=== PATIENT | male | born 1995 | race Caucasian/White ===

== ENCOUNTER 2021-12-18 19:18 | Emergency (ER) | payer OTHER ==
[2021-12-18 19:29] VITALS: BP 153/82
[2021-12-18 19:44] LABS: RAPID STREP SCREEN Negative (Negative)
[2021-12-18] MEDS ORDERED: DEXAMETHASONE 10 MG/ML VIAL PO STA (20:14)
[2021-12-18] MEDS ORDERED: PENICILLIN VK 250 MG TABLET PO STA (20:14)
[2021-12-18] MEDS ORDERED: CHERRY SYRUP 10 ML UDC PO ONE (20:14)
--- NOTE | 2021-12-18 20:17 | ED Physician Documentation ---
History of Present Illness - Stated complaint Stated Complaint: SORE THROAT/WHITE SPOTS ON THROAT - Chief complaint Chief Complaint: Heent - History obtained from History obtained from: Patient - History of Present Illness Timing: Today Pain level max: 5 Pain level now: 4 - Additonal information Additional information: 26-year-old male presents to the emergency department for sore throat today. No rhinorrhea or congestion. No cough. Subjective fever. Chills. Worse with eating and drinking, nothing makes it better. No nausea, vomiting, rash, abdominal pain. Review of Systems Constitutional: denies: Fever Respiratory: denies: Cough GI: denies: Nausea, Vomiting Skin: denies: Rash Musculoskeletal: denies: Neck pain, Back pain Neurologic: denies: Headache PD PAST MEDICAL HISTORY - Past Medical History Past Medical History: No Cardiovascular: None Respiratory: None Neuro: None Endocrine/Autoimmune: None GI: None : None HEENT: None Psych: None Musculoskeletal: None Derm: None - Past Surgical History Past Surgical History: No - Present Medications Home Medications: Ambulatory Orders Medication Instructions Recorded Confirmed Ibuprofen [Motrin] 800 mg PO Q8H PRN #30 tablet 12/18/21 Penicillin V Potassium 500 mg PO Q6HR #40 tablet 12/18/21 - Allergies Allergies/Adverse Reactions: Allergies Allergy/AdvReac Type Severity Reaction Status Date / Time No Known Drug Allergies Allergy Verified 12/18/21 19:29 - Social History Does the pt smoke?: No Smoking Status: Never smoker Does the pt drink ETOH?: Yes Does the pt have substance abuse?: No - Immunizations Immunizations are current?: Yes - POLST Patient has POLST: No PD ED PE NORMAL - Vitals Vital signs reviewed: Yes - General General: Alert and oriented X 3, No acute distress - HEENT HEENT: Moist mucous membranes, Other (Posterior oropharynx is erythematous with tonsillar exudates. Normal phonation. No trismus. Uvula midline.) - Neck Neck: Supple, no meningeal sign - Cardiac Cardiac: RRR - Respiratory Respiratory: No respiratory distress, Clear bilaterally - Derm Derm: Warm and dry - Neuro Neuro: Alert and oriented X 3 - Psych Psych: Normal mood, Normal affect Results - Vitals Vitals: Vital Signs - 24 hr 12/18/21 12/18/21 12/18/21 19:28 19:31 20:19 Temperature 37.0 C Heart Rate 68 Respiratory 16 16 16 Rate Blood Pressure 153/82 H O2 Saturation 100 Oxygen O2 Source Room air - Labs Labs: Laboratory Tests 12/18/21 19:15 Group A Strep Rapid Negative PD MEDICAL DECISION MAKING - ED course Complexity details: reviewed results, considered differential, d/w patient ED course: 26-year-old male with what appears to be strep pharyngitis. 4 out of 4 positive Centor criteria. We will treat with antibiotics. Patient is well-appearing, nontoxic. Normal phonation. No trismus. No evidence of peritonsillar abscess. No evidence of retropharyngeal abscess. Patient counseled regarding signs and symptoms for which I believe and urgent re-evaluation would be necessary. Patient with good understanding of and agreement to plan and is comfortable going home at this time This document was made in part using voice recognition software. While efforts are made to proofread this document, sound alike and grammatical errors may occur. Departure - Departure Disposition: 01 Home, Self Care Clinical Impression: Pharyngitis Qualifiers: Pharyngitis/tonsillitis etiology: unspecified etiology Qualified Code(s): J02.9 - Acute pharyngitis, unspecified Condition: Good Instructions: ED Strep Pharyngitis Poss Follow-Up: your,doctor in 1 week [Other] Prescriptions: Penicillin V Potassium 500 mg PO Q6HR #40 tablet Ibuprofen [Motrin] 800 mg PO Q8H PRN #30 tablet PRN Reason: PAIN &/OR FEVER Comments: Drink plenty of fluids and rest. Return if you worsen. Your prescriptions were sent to [facility] in [place]. Take all antibiotics until gone. Even if you are feeling better. Forms: Activity restrictions Discharge Date/Time: 12/18/21 20:24
== END 2021-12-18 20:24 | disposition home or self-care (01) ==
LOC: ED 19:18
DX: J02.9 Acute pharyngitis, unspecified (principal)
CPT/HCPCS: 87070; 87430; 99282; 99283; A9270

== ENCOUNTER 2022-06-29 21:38 | Emergency (ER) | payer OTHER ==
[2022-06-29 21:50] VITALS: BP 141/75
== END 2022-06-30 01:53 | disposition left against medical advice (07) ==
LOC: ED 21:38
DX: Z53.21 Procedure and treatment not carried out due to patient leaving prior to being seen by health care provider (principal)